=== PATIENT | female | born 1985 | race Caucasian/White ===

== ENCOUNTER 2021-06-16 21:25 | Emergency (ER) | payer SELFPAY ==
[2021-06-16 22:00] VITALS: BP 141/93; PULSE 107
[2021-06-16 23:31] LABS: CORONAVIRUS COVID-19 NAA NEGATIVE (NEGATIVE)
== END 2021-06-16 23:55 | disposition home or self-care (01) ==
LOC: JP.ED 21:25
DX: R10.84 Generalized abdominal pain (principal); F10.10 Alcohol abuse, uncomplicated; R74.01 Elevation of levels of liver transaminase levels; Z72.0 Tobacco use; Z20.822 Contact with and (suspected) exposure to COVID-19
CPT/HCPCS: 0241U; 36415; 74019; 80053; 80305; 81001; 83605; 83690; 85025; 86140; 99283; 99284

== ENCOUNTER 2021-11-02 12:59 | Emergency (ER) | payer SELFPAY ==
[2021-11-02 13:16] VITALS: BP 135/93; PULSE 99
[2021-11-02] MEDS ORDERED: Thiamine 100 MG Tab PO ONE (13:55)
[2021-11-02] MEDS ORDERED: Folic Acid 1 MG Tab PO ONE (13:55)
[2021-11-02] MEDS ORDERED: Multivitamins with Iron/Calcium/Folic Acid/Minerals Tab PO ONE (13:55)
== END 2021-11-02 16:45 | disposition left against medical advice (07) ==
LOC: JP.ED 12:59
DX: F10.129 Alcohol abuse with intoxication, unspecified (principal); F15.920 Other stimulant use, unspecified with intoxication, uncomplicated; R41.0 Disorientation, unspecified; E53.8 Deficiency of other specified B group vitamins; Y90.0 Blood alcohol level of less than 20 mg/100 ml
CPT/HCPCS: 36415; 80048; 80076; 80305-QW; 80307; 82607; 82746; 83735; 84443; 85025; 99284; A9270-GY

== ENCOUNTER 2022-03-25 21:38 | Emergency (ER) | payer SELFPAY ==
[2022-03-25 21:50] VITALS: BP 114/77; PULSE 88
== END 2022-03-25 22:02 ==
LOC: JP.ED 21:38
DX: F10.129 Alcohol abuse with intoxication, unspecified (principal); F17.210 Nicotine dependence, cigarettes, uncomplicated
CPT/HCPCS: 99283

== ENCOUNTER 2022-05-13 11:57 | Emergency (ER) | payer SELFPAY ==
[2022-05-13 13:22] VITALS: BP 136/92; PULSE 104
[2022-05-13 14:22] LABS: ESTIMATED GFR 116 mL/min (>60)
== END 2022-05-13 14:46 | disposition home or self-care (01) ==
LOC: JP.ED 12:01
DX: K92.0 Hematemesis (principal); F10.129 Alcohol abuse with intoxication, unspecified; Z79.899 Other long term (current) drug therapy
CPT/HCPCS: 36415; 80053; 80307; 83690; 85025; 85610; 99284